=== PATIENT | female | born 1990 | race Two or more races ===

== ENCOUNTER 2024-08-30 10:52 | Emergency (ER) | payer OTHER, SELFPAY ==
[2024-08-30 11:02] VITALS: BP 126/78; PULSE 70; RESP 18; TEMP 36.8; O2SAT 97
--- NOTE | 2024-09-05 14:54 | EDNOTE_ITS ---
ED General RME/HPI General Chief complaint: General Adult/Misc Complain Stated complaint: Left arm swelling (possible spider bite) Source: patient Arrival date/time: 08/30/24 10:52 33-year-old female with no known medical history presents to the emergency room with a chief complaint of a insect bite to her left arm Mode of arrival: ambulatory Limitations: no limitations Related Data Previous Rx's ?Medication ?Instructions ?Recorded amoxicillin 875 mg-potassium 1 tab PO BID 7 days #14 t abs 08/30/24 clavulanate 125 mg tablet Allergies Allergy/AdvReac Type Severity Reaction Status Date / Time No Known Allergies Allergy Verified 08/30/24 10:54 Review of Systems Review of Systems Systems Reviewed: All systems reviewed, normal except as documented Constitutional Constitutional: Reports system reviewed and no additional complaints, except as documented, Denies fatigue, Denies fever(s), Denies headache(s) and Denies weakness Eyes Eyes: Reports system reviewed and no additional complaints, except as documented, Denies blurry vision and Denies change in vision ENT Ears, Nose, Mouth, and Throat: Reports system reviewed and no additional complaints, except as documented, Denies otalgia, Denies headache(s), Denies nasal congestion, Denies throat swelling and Denies vertigo Cardiovascular Cardiovascular: Reports system reviewed and no additional complaints, except as documented, Denies chest pain, Denies dyspnea and Denies dyspnea on exertion Respiratory Respiratory: Reports system reviewed and no additional complaints, except as documented, Denies chest congestion, Denies cough, Denies dyspnea, Denies dyspnea on exertion and Denies wheezing Gastrointestinal Gastrointestinal: Reports system reviewed and no additional complaints, except as documented, Denies abdominal pain, Denies cramping, Denies nausea and Denies vomiting Genitourinary Genitourinary: Reports system reviewed and no additional complaints, except as documented Musculoskeletal Musculoskeletal: Reports system reviewed and no additional complaints, except as documented and Denies back pain Integumentary/Breasts Skin/Breast: Reports system reviewed and no additional complaints, except as documented and Reports wounds Neurologic Neurologic: Reports system reviewed and no additional complaints, except as documented, Denies confusion, Denies headache(s), Denies lack of coordination, Denies vertigo and Denies weakness Psychiatric Psychiatric: Reports system reviewed and no additional complaints, except as documented, Denies anxiety, Denies confusion, Denies depression, Denies paranoia, Denies suicidal ideation and Denies tactile hallucinations Endocrine Endocrine: Reports system reviewed and no additional complaints, except as documented and Denies fatigue Hematologic/Lymphatic Hematologic/Lymphatic: Reports system reviewed and no additional complaints, except as documented and Denies lymphadenopathy Allergic/Immunologic Allergic/Immunologic: Reports system reviewed and no additional complaints, except as documented, Denies throat swelling, Denies urticaria and Denies wheezing Past Medical History Social History SMOKING STATUS: Never smoker ED Exam General Limitations: Present no limitations General appearance: Present alert and in no apparent distress Head Head exam: Present atraumatic Eye Eye exam: Present normal appearance, PERRL and EOMI ENT ENT exam: Present normal exam, normal oropharynx and mucous membranes moist Neck Neck exam: Present normal inspection, full ROM and trachea midline Chest Chest inspection: Present normal inspection and symmetric chest wall rise Respiratory Respiratory exam: Present normal lung sounds bilaterally Cardiovascular Cardiovascular exam: Present regular rate, normal rhythm and normal heart sounds Abdominal Exam Abdominal exam: Present soft and normal bowel sounds Extremities Exam Extremities exam: Present normal inspection and full ROM Expanded Upper Extremity Exam Shoulder exam: Present normal inspection Arm exam: Present tenderness and swelling Elbow exam: Present normal inspection Forearm/Wrist exam: Present normal inspection Back Exam Back exam: Present normal inspection and full ROM Neurological Exam Neurological exam: Present alert, oriented X3 and CN II-XII intact Psychiatric Psychiatric exam: Present normal affect and normal mood Skin Skin exam: Present warm, dry, intact and normal color Expanded Skin Exam Type of lesion: Present bite/sting Distribution: Present LUE Description: Present tenderness and erythematous Course Quality Measures none Vital Signs Vital signs: Vital Signs Temperature 98.2 F 08/30/24 11:02 Pulse Rate 70 08/30/24 11:02 Respiratory Rate 18 08/30/24 11:02 Blood Pressure 126/78 08/30/24 11:02 Pulse Oximetry (%) 97 08/30/24 11:02 Oxygen Delivery Method Room Air 08/30/24 11:02 Discharge Plan Plan Patient Disposition: HOME (Self Care) Discharge Disposition comment: stable Prescriptions/Referrals Prescriptions/Med Rec: New amoxicillin-pot clavulanate 875-125 mg tablet 1 tab PO BID 7 Days Qty: 14 0RF Referrals: Antony Bartlett MD [Primary Care Provider] - In 1 week Problem List Clinical Impression: Cellulitis Patient/Caregiver Discharge Instructions Education Materials: Discharge Instructions for Cellulitis, ED Cellulitis Additional Instructions: Please follow-up with your primary care provider in the next 24 to 40 hours For any evidence of worsening signs or symptoms return emergency room immediately Print Language: [place] Stand Alone Forms: S[employer]hu Award Info., Patient Portal Info Letter PA/BRIM WELT SEWING MACHINE OPERATOR Supervising Physician PA/BRIM WEL[employer] SEWING MACHINE OPERATOR Supervising Physician: Dr. Ojeda MDM Narrative MDM hospital course (for use when minimal MDM required): 33-year-old female with no known medical history presents to the emergency room with a chief complaint of a insect bite to her left arm Patient is hemodynamically stable and in no apparent distress. Physical examination shows an insect bite to the left arm. The site is erythemic and warm to the touch. The patient does not know what type of insect bit him but believes it was a spider. The patient does not know whether he clear this. This has been going on for the last 3 days. Antibiotics were sent to the patient's pharmacy Patient was discharged and educated to follow-up with primary care provider in the next 24 to 48 hours and return to the emergency room for any evidence of worsening signs or symptoms Clinical Information Provided by: patient Medical Records reviewed [facility] Meds/Rx considered, not ordered None Labs/Rad/Tests considered, not ordered None Chronic Illness/Social Conditions which may negatively complicate care or outcome(s)-explain: None or not applicable EKG EKG not done Labs Labs: none Imaging Imaging interpretation: none or see narrative above Medication Administration(s) none Diagnosis Differential Diagnosis ED Complaint MDM: Cellulitis/insect bite/abrasion Diagnoses ruled out and/or further discussions: Insect bite/abrasion
== END 2024-08-30 11:32 | disposition home or self-care (01) ==
PROVIDERS: Emergency Provider Family Medicine; PCP Internal Medicine Pulmonary Disease
DX: L03.114 Cellulitis of left upper limb (principal)
CPT/HCPCS: 99281